=== PATIENT | female | born 1985 | race Caucasian/White ===

== ENCOUNTER 2022-05-08 07:59 | Emergency (ER) | payer SELFPAY ==
[2022-05-08] MEDS ORDERED: Sodium Chloride 0.9% 2.5 ML Syringe FLUSH PRN (08:20)
[2022-05-08] MEDS ORDERED: Sodium Chloride 0.9% 10 ML Syringe FLUSH PRN (08:20)
[2022-05-08] MEDS ORDERED: Morphine 4 MG/ML Syringe IVPUSH ONE (08:20)
[2022-05-08] MEDS ORDERED: Ketorolac 30 MG/ML SDV IVPUSH ONE (08:49)
== END 2022-05-08 10:21 | disposition home or self-care (01) ==
LOC: EDSEX 07:59 → MW.ED 07:59
DX: M25.511 Pain in right shoulder (principal); I10 Essential (primary) hypertension; F17.210 Nicotine dependence, cigarettes, uncomplicated; Z88.1 Allergy status to other antibiotic agents
CPT/HCPCS: 73030; 73060; 96374; 99283; J1885; J3490; 99284

== ENCOUNTER 2023-11-16 10:58 | Emergency (ER) | payer OTHER ==
[2023-11-16 11:57] LABS: APPEARANCE,URINE SLT CLOUDY; BILIRUBIN,URINE NEGATIVE (NEGATIVE); GLUCOSE,URINE NEGATIVE (NEGATIVE); KETONES,URINE NEGATIVE (NEGATIVE); LEUKOCYTE ESTERASE,URINE NEGATIVE (NEGATIVE); NITRITE,URINE NEGATIVE (NEGATIVE); OCCULT BLOOD,URINE LARGE (NEGATIVE); PROTEIN,URINE 100 mg/dL (NEGATIVE); UROBILINOGEN,URINE 0.2 EU/dL (<2.0)
[2023-11-16 12:02] LABS: COLOR,URINE DARK YELLOW
[2023-11-16 12:14] LABS: AMORPHOUS SEDIMENT,URINE MODERATE (NEGATIVE); BACTERIA,URINE 1+ (NEGATIVE); EPITHELIAL CELLS,URINE FEW (NONE-FEW); MUCUS,URINE FEW (NONE-MOD)
[2023-11-16] MEDS: Ketorolac 30 MG/ML SDV IM STA (12:23)
[2023-11-16] MEDS: Orphenadrine 60 MG/2 ML Inj IM STA (12:24)
== END 2023-11-16 13:29 | disposition home or self-care (01) ==
LOC: MW.ED 10:58
DX: M25.552 Pain in left hip (principal); I11.0 Hypertensive heart disease with heart failure; I50.9 Heart failure, unspecified; E11.9 Type 2 diabetes mellitus without complications; E66.9 Obesity, unspecified; F17.210 Nicotine dependence, cigarettes, uncomplicated; Z90.49 Acquired absence of other specified parts of digestive tract; Z79.899 Other long term (current) drug therapy; Z79.84 Long term (current) use of oral hypoglycemic drugs; Z88.1 Allergy status to other antibiotic agents; Z75.8 Other problems related to medical facilities and other health care; Z68.43 Body mass index [BMI] 50.0-59.9, adult
CPT/HCPCS: 73502; 81001; 81025; 96372; 99283; J1885; J2360

== ENCOUNTER 2024-06-13 16:43 | Inpatient (IN) | payer OTHER ==
[2024-06-13 17:24] LABS: BASOPHILS ABSOLUTE AUTO 0.02 K/uL (0.00-0.20); BASOPHILS PERCENT AUTO 0.2 % (0.0-1.0); EOSINOPHILS ABSOLUTE AUTO 0.07 K/uL (0.00-0.45); EOSINOPHILS PERCENT AUTO 0.8 % (0.0-6.0); HEMATOCRIT 55.9 % (37.0-47.0); HEMOGLOBIN 16.2 g/dL (12.0-16.0); IMMATURE GRAN ABSOLUTE AUTO 0.03 K/uL (0.00-0.05); IMMATURE GRAN PERCENT AUTO 0.4 % (0.0-0.4); LYMPHOCYTES PERCENT AUTO 13.2 % (24.0-44.0); MEAN CORPUSCULAR VOLUME 89.6 fL (83.0-99.0); MEAN PLATELET VOLUME 10.6 fL (9.4-12.3); MONOCYTES ABSOLUTE AUTO 0.67 K/uL (0.00-0.80); MONOCYTES PERCENT AUTO 8.1 % (0.0-8.0); NEUTROPHILS ABSOLUTE AUTO 6.42 K/uL (1.80-7.70); NEUTROPHILS PERCENT AUTO 77.3 % (41.0-71.0); NRBC ABSOLUTE 0.04 K/uL (0.00-0.02); NRBC PERCENT 0.5 /100WBC (0.0-0.2); PLATELET COUNT,PLT 166 K/uL (150-400); RED BLOOD CELL COUNT 6.24 M/uL (4.10-5.30); WHITE BLOOD CELL COUNT,WBC 8.31 K/uL (3.9-11.3)
[2024-06-13 17:33] LABS: BASE EXCESS VENOUS 15.2 (-2.0-3.0); PH,VENOUS 7.43 (7.32-7.43)
[2024-06-13 18:17] LABS: A/G RATIO 0.7 (0.9-1.6); ALBUMIN 2.8 g/dL (3.4-5.0); BILIRUBIN TOTAL 0.7 mg/dL (0.2-1.0); CARBON DIOXIDE,CO2 35.5 mmol/L (21.0-32.0); CREATININE 1.3 mg/dL (0.6-1.0); EST CRCL DRUG DOSING (CG) 55.47 mL/min; POTASSIUM,K 4.2 mmol/L (3.5-5.1); PROTEIN TOTAL,TP 6.6 g/dL (6.4-8.2)
[2024-06-13] MEDS: Furosemide 40 MG/4 ML VIAL IVPUSH ONE (18:59)
[2024-06-13] MEDS: Albuterol/Ipratropium 3.0-0.5 MG/3 ML Neb Soln NEB ONE (18:59)
[2024-06-14] MEDS: Enoxaparin 40 MG/0.4 ML Syringe SUBCUT SCH (00:21)
[2024-06-14] MEDS: Carvedilol 25 MG Tab PO SCH (00:22)
[2024-06-14 05:48] LABS: BASOPHILS ABSOLUTE AUTO 0.01 K/uL (0.00-0.20); BASOPHILS PERCENT AUTO 0.1 % (0.0-1.0); EOSINOPHILS ABSOLUTE AUTO 0.09 K/uL (0.00-0.45); EOSINOPHILS PERCENT AUTO 1.1 % (0.0-6.0); HEMATOCRIT 56.1 % (37.0-47.0); HEMOGLOBIN 15.8 g/dL (12.0-16.0); IMMATURE GRAN ABSOLUTE AUTO 0.02 K/uL (0.00-0.05); IMMATURE GRAN PERCENT AUTO 0.3 % (0.0-0.4); LYMPHOCYTES ABSOLUTE AUTO 1.03 K/uL (1.00-4.80); MEAN CORPUSCULAR HEMOGLOBIN 25.9 pg (28.0-32.0); MEAN CORPUSCULAR HGB CONC 28.2 g/dL (32.0-36.0); MEAN CORPUSCULAR VOLUME 91.8 fL (83.0-99.0); MEAN PLATELET VOLUME 11.2 fL (9.4-12.3); MONOCYTES ABSOLUTE AUTO 0.71 K/uL (0.00-0.80); MONOCYTES PERCENT AUTO 8.9 % (0.0-8.0); NEUTROPHILS ABSOLUTE AUTO 6.09 K/uL (1.80-7.70); NEUTROPHILS PERCENT AUTO 76.6 % (41.0-71.0); NRBC ABSOLUTE 0.02 K/uL (0.00-0.02); NRBC PERCENT 0.3 /100WBC (0.0-0.2); PLATELET COUNT,PLT 136 K/uL (150-400); RED BLOOD CELL COUNT 6.11 M/uL (4.10-5.30); WHITE BLOOD CELL COUNT,WBC 7.95 K/uL (3.9-11.3)
[2024-06-14 06:09] LABS: CALCIUM 8.8 mg/dL (8.5-10.1); CARBON DIOXIDE,CO2 36.3 mmol/L (21.0-32.0); CREATININE 1.4 mg/dL (0.6-1.0); EST CRCL DRUG DOSING (CG) 51.5 mL/min; POTASSIUM,K 4.7 mmol/L (3.5-5.1)
[2024-06-14] MEDS: Spironolactone 25 MG Tab PO SCH (08:35)
[2024-06-14] MEDS: Furosemide 40 MG/4 ML VIAL IVPUSH SCH ×2 (08:35→13:35)
[2024-06-14] MEDS: Empagliflozin 10 MG Tab PO SCH (08:36)
[2024-06-14] MEDS ORDERED: Carvedilol 25 MG Tab PO SCH (09:00)
[2024-06-14 10:32] LABS: PERCENT FE SATURATION 8.3 % (20-55)
[2024-06-14 10:55] LABS: BASE EXCESS ARTERIAL 13.7 (-2.0-3.0); BICARBONATE,ARTERIAL 41 mEq/L (21-28); PCO2 ARTERIAL 61 mmHG (35-45); PO2 ARTERIAL 76 mmHG (83-108)
[2024-06-14] MEDS: Rosuvastatin 10 MG Tab PO SCH (21:25)
[2024-06-15] MEDS: Enoxaparin 40 MG/0.4 ML Syringe SUBCUT ONE (00:28)
[2024-06-15 05:40] LABS: BASOPHILS ABSOLUTE AUTO 0.01 K/uL (0.00-0.20); BASOPHILS PERCENT AUTO 0.1 % (0.0-1.0); EOSINOPHILS ABSOLUTE AUTO 0.04 K/uL (0.00-0.45); EOSINOPHILS PERCENT AUTO 0.4 % (0.0-6.0); HEMATOCRIT 55.2 % (37.0-47.0); HEMOGLOBIN 15.4 g/dL (12.0-16.0); IMMATURE GRAN ABSOLUTE AUTO 0.02 K/uL (0.00-0.05); IMMATURE GRAN PERCENT AUTO 0.2 % (0.0-0.4); LYMPHOCYTES ABSOLUTE AUTO 0.64 K/uL (1.00-4.80); LYMPHOCYTES PERCENT AUTO 7.1 % (24.0-44.0); MEAN CORPUSCULAR HEMOGLOBIN 25.7 pg (28.0-32.0); MEAN CORPUSCULAR HGB CONC 27.9 g/dL (32.0-36.0); MEAN PLATELET VOLUME 10.9 fL (9.4-12.3); MONOCYTES ABSOLUTE AUTO 0.82 K/uL (0.00-0.80); MONOCYTES PERCENT AUTO 9.1 % (0.0-8.0); NEUTROPHILS ABSOLUTE AUTO 7.51 K/uL (1.80-7.70); NEUTROPHILS PERCENT AUTO 83.1 % (41.0-71.0); PLATELET COUNT,PLT 156 K/uL (150-400); WHITE BLOOD CELL COUNT,WBC 9.04 K/uL (3.9-11.3)
[2024-06-15 06:11] LABS: A/G RATIO 0.7 (0.9-1.6); ALBUMIN 2.6 g/dL (3.4-5.0); BILIRUBIN TOTAL 1.4 mg/dL (0.2-1.0); CALCIUM 8.9 mg/dL (8.5-10.1); CREATININE 1.1 mg/dL (0.6-1.0); EST CRCL DRUG DOSING (CG) 65.55 mL/min; MAGNESIUM 1.7 mg/dL (1.8-2.4); POTASSIUM,K 4.3 mmol/L (3.5-5.1); PROTEIN TOTAL,TP 6.4 g/dL (6.4-8.2)
[2024-06-15] MEDS: Magnesium Sulf/Wat 2 GM/50 mL 2 GM in Premix Bag 1 BAG IV ONE (08:32)
[2024-06-15] MEDS: Enoxaparin 40 MG/0.4 ML Syringe SUBCUT SCH (20:56)
[2024-06-16 05:54] LABS: BASOPHILS ABSOLUTE AUTO 0.01 K/uL (0.00-0.20); BASOPHILS PERCENT AUTO 0.1 % (0.0-1.0); EOSINOPHILS ABSOLUTE AUTO 0.05 K/uL (0.00-0.45); EOSINOPHILS PERCENT AUTO 0.6 % (0.0-6.0); HEMATOCRIT 53.4 % (37.0-47.0); HEMOGLOBIN 15.7 g/dL (12.0-16.0); IMMATURE GRAN ABSOLUTE AUTO 0.03 K/uL (0.00-0.05); IMMATURE GRAN PERCENT AUTO 0.4 % (0.0-0.4); LYMPHOCYTES ABSOLUTE AUTO 0.82 K/uL (1.00-4.80); LYMPHOCYTES PERCENT AUTO 10.6 % (24.0-44.0); MEAN CORPUSCULAR HEMOGLOBIN 25.7 pg (28.0-32.0); MEAN CORPUSCULAR HGB CONC 29.4 g/dL (32.0-36.0); MEAN CORPUSCULAR VOLUME 87.4 fL (83.0-99.0); MEAN PLATELET VOLUME 10.4 fL (9.4-12.3); MONOCYTES ABSOLUTE AUTO 0.85 K/uL (0.00-0.80); MONOCYTES PERCENT AUTO 10.9 % (0.0-8.0); NEUTROPHILS ABSOLUTE AUTO 6.01 K/uL (1.80-7.70); NEUTROPHILS PERCENT AUTO 77.4 % (41.0-71.0); PLATELET COUNT,PLT 135 K/uL (150-400); RED BLOOD CELL COUNT 6.11 M/uL (4.10-5.30); WHITE BLOOD CELL COUNT,WBC 7.77 K/uL (3.9-11.3)
[2024-06-16 06:06] LABS: CALCIUM 8.7 mg/dL (8.5-10.1); CARBON DIOXIDE,CO2 38.6 mmol/L (21.0-32.0); EST CRCL DRUG DOSING (CG) 72.11 mL/min; MAGNESIUM 2.2 mg/dL (1.8-2.4); POTASSIUM,K 4.9 mmol/L (3.5-5.1)
[2024-06-17 06:13] LABS: BASOPHILS ABSOLUTE AUTO 0.01 K/uL (0.00-0.20); BASOPHILS PERCENT AUTO 0.1 % (0.0-1.0); EOSINOPHILS ABSOLUTE AUTO 0.06 K/uL (0.00-0.45); EOSINOPHILS PERCENT AUTO 0.7 % (0.0-6.0); HEMATOCRIT 55.9 % (37.0-47.0); HEMOGLOBIN 15.4 g/dL (12.0-16.0); IMMATURE GRAN ABSOLUTE AUTO 0.03 K/uL (0.00-0.05); IMMATURE GRAN PERCENT AUTO 0.4 % (0.0-0.4); LYMPHOCYTES ABSOLUTE AUTO 0.54 K/uL (1.00-4.80); LYMPHOCYTES PERCENT AUTO 6.4 % (24.0-44.0); MEAN CORPUSCULAR HEMOGLOBIN 25.4 pg (28.0-32.0); MEAN CORPUSCULAR HGB CONC 27.5 g/dL (32.0-36.0); MEAN CORPUSCULAR VOLUME 92.2 fL (83.0-99.0); MEAN PLATELET VOLUME 11.9 fL (9.4-12.3); MONOCYTES ABSOLUTE AUTO 0.67 K/uL (0.00-0.80); NEUTROPHILS ABSOLUTE AUTO 7.09 K/uL (1.80-7.70); NEUTROPHILS PERCENT AUTO 84.4 % (41.0-71.0); PLATELET COUNT,PLT 167 K/uL (150-400); RED BLOOD CELL COUNT 6.06 M/uL (4.10-5.30)
[2024-06-17 06:30] LABS: CALCIUM 9.1 mg/dL (8.5-10.1); CARBON DIOXIDE,CO2 41.5 mmol/L (21.0-32.0); CREATININE 1.1 mg/dL (0.6-1.0); EST CRCL DRUG DOSING (CG) 65.55 mL/min; MAGNESIUM 1.9 mg/dL (1.8-2.4); POTASSIUM,K 4.6 mmol/L (3.5-5.1)
[2024-06-17] MEDS: Torsemide 20 MG Tab PO ONE (15:41)
[2024-06-18 06:23] LABS: BICARBONATE,ARTERIAL 45 mEq/L (21-28); PCO2 ARTERIAL 73 mmHG (35-45); PO2 ARTERIAL 68 mmHG (83-108)
[2024-06-18 07:22] LABS: BASOPHILS ABSOLUTE AUTO 0.01 K/uL (0.00-0.20); BASOPHILS PERCENT AUTO 0.1 % (0.0-1.0); EOSINOPHILS ABSOLUTE AUTO 0.09 K/uL (0.00-0.45); EOSINOPHILS PERCENT AUTO 1.1 % (0.0-6.0); HEMOGLOBIN 15.3 g/dL (12.0-16.0); IMMATURE GRAN ABSOLUTE AUTO 0.01 K/uL (0.00-0.05); IMMATURE GRAN PERCENT AUTO 0.1 % (0.0-0.4); LYMPHOCYTES ABSOLUTE AUTO 0.71 K/uL (1.00-4.80); LYMPHOCYTES PERCENT AUTO 8.4 % (24.0-44.0); MEAN CORPUSCULAR HEMOGLOBIN 25.8 pg (28.0-32.0); MEAN CORPUSCULAR HGB CONC 28.3 g/dL (32.0-36.0); MEAN CORPUSCULAR VOLUME 91.2 fL (83.0-99.0); MEAN PLATELET VOLUME 10.5 fL (9.4-12.3); MONOCYTES ABSOLUTE AUTO 0.77 K/uL (0.00-0.80); MONOCYTES PERCENT AUTO 9.1 % (0.0-8.0); NEUTROPHILS ABSOLUTE AUTO 6.88 K/uL (1.80-7.70); NEUTROPHILS PERCENT AUTO 81.2 % (41.0-71.0); PLATELET COUNT,PLT 149 K/uL (150-400); RED BLOOD CELL COUNT 5.92 M/uL (4.10-5.30); WHITE BLOOD CELL COUNT,WBC 8.47 K/uL (3.9-11.3)
[2024-06-18 07:25] LABS: CREATININE 1.1 mg/dL (0.6-1.0); EST CRCL DRUG DOSING (CG) 65.55 mL/min; MAGNESIUM 2.1 mg/dL (1.8-2.4); POTASSIUM,K 4.1 mmol/L (3.5-5.1)
[2024-06-18] MEDS: Torsemide 20 MG Tab PO SCH (08:25)
== END 2024-06-18 12:03 | disposition home or self-care (01) | DRG 292 ==
LOC: MW.ED 16:43 → MW.MS 18:37
PROVIDERS: ADMIT Family Medicine; ATTEND Internal Medicine
DX: I11.0 Hypertensive heart disease with heart failure (principal); E66.2 Morbid (severe) obesity with alveolar hypoventilation; E87.3 Alkalosis; Z68.43 Body mass index [BMI] 50.0-59.9, adult; Z66 Do not resuscitate; I50.9 Heart failure, unspecified; E11.9 Type 2 diabetes mellitus without complications; E78.5 Hyperlipidemia, unspecified; J45.909 Unspecified asthma, uncomplicated; Z79.4 Long term (current) use of insulin
CPT/HCPCS: 36415; 36600; 71045; 71045-26; 80048; 80053; 82803; 82947; 83550; 83735; 83880; 84484; 85025; 87428-QW; 93005; 93010; 99222; 99231; 99232; 99233; 99239; 99285; A9270-GY; J1650; J1940; J3475